=== PATIENT | male | born 2000 | race Two or more races ===

== ENCOUNTER 2018-04-26 21:10 | Emergency (ER) | payer MEDICAID ==
[~2018-04-26] VITALS: Ht 172.7 cm; Wt 70.3 kg
[2018-04-26] MEDS ORDERED: NKM (21:23)
--- NOTE | 2018-04-26 21:29 | Emergency Room Report ---
History of Present Illness General Chief Complaint: Lower Extremity Injury Source: Patient Present Illness HPI Is a 17-year-old male with no cerumen past medical history. He presents with injury to right great toe. Initially she was 2 weeks ago. He said he stopped it and swollen and was painful. There was bluish discoloration to the nail. He went back to work today and a block of cement drop on his shoe. Now the nose loose and there is blood. Pain is throbbing in nature. Worse with walking. Denies any fever chills denies any nausea vomiting. No other injury. Pain is 5 out of 10. Allergies: Coded Allergies: No Known Allergies (Unverified , 04/26/18) Patient History Past Medical History: see triage record, old chart reviewed Past Surgical History: none Pertinent Family History: none Social History: Denies: smoking Immunizations: other Reviewed Nursing Documentation: PMH: Agreed; PSxH: Agreed Nursing Documentation-PMH Past Medical History: No Stated History Review of Systems Eye: Denies: eye pain, blurred vision ENT: Denies: ear pain, nose congestion, throat swelling Respiratory: Denies: cough, shortness of breath Cardiovascular: Denies: chest pain, palpitations Gastrointestinal: Denies: abdominal pain, diarrhea, nausea, vomiting Musculoskeletal: Reports: joint pain; Denies: back pain Skin: Denies: rash Neurological: Denies: headache, numbness Endocrine: Denies: increased thirst, increased urine Hematologic/Lymphatic: Denies: easy bruising All Other Systems: negative except mentioned in HPI Physical Exam Vital Signs Date Time Temp Pulse Resp B/P (MAP) Pulse Ox O2 Delivery O2 Flow Rate FiO2 04/26/18 21:16 98.2 72 16 100/59 95 Room Air 98.2 vitals normal Sp02 EP Interpretation: reviewed, normal General Appearance: well appearing, no apparent distress, alert Head: normocephalic, atraumatic Eyes: bilateral eye PERRL, bilateral eye EOMI ENT: hearing grossly normal, normal pharynx Neck: full range of motion, supple, no meningismus Respiratory: chest non-tender, lungs clear, normal breath sounds Cardiovascular #1: regular rate, rhythm, no murmur Gastrointestinal: normal bowel sounds, non tender, no mass, no organomegaly, no bruit, non-distended Musculoskeletal: back normal, gait/station normal, normal range of motion, other - Right great toe: The nail was loose and his already discoloration to the nail itself. There is bleeding from all subungual hematoma. Psychiatric: mood/affect normal Skin: warm/dry Medical Decision Making Diagnostic Impression: Primary Impression: Nail avulsion of toe Qualified Codes: S91.209A - Unspecified open wound of unspecified toe(s) with damage to nail, initial encounter ER Course Patient presents with nail avulsion of his great toe. Most likely, he had no avulsion and subungual hematoma from 2 weeks ago. Today the blood was displaced. There is no evidence of any fracture or dislocation. We'll discharge home. Last Vital Signs Date Time Temp Pulse Resp B/P (MAP) Pulse Ox O2 Delivery O2 Flow Rate FiO2 04/26/18 21:16 98.2 72 16 100/59 95 Room Air 98.2 Status: improved Disposition: HOME, SELF-CARE Condition: Stable Scripts Ibuprofen* (MOTRIN*) 600 Mg Tablet 600 MG ORAL THREE TIMES A DAY, #30 TAB 0 Refills Prov: ISA KELLER M.D. 04/26/18 Additional Instructions: Follow-up your doctor in 7 days. Keep wound clean. Your toenail will fall off eventually. Return if symptom worsen. ISA KELLER M.D. Apr 26, 2018 21:29
[2018-04-26] MEDS ORDERED: IBUPROFEN600 MG ORAL (21:47)
[2018-04-26 21:50] VITALS: BP 108/59
--- NOTE | 2018-04-27 09:41 | Diagnostic Imaging Report ---
Indication: Right great toe pain, trauma Technique: 3 views of the right great toe Comparison: none Findings: No acute fractures. No dislocations. The joint spaces are preserved. No radiopaque foreign body Impression: Negative
== END 2018-04-26 22:29 | disposition home or self-care (01) ==
LOC: EMR 21:29
DX: S91.209A Unspecified open wound of unspecified toe(s) with damage to nail, initial encounter (principal); W20.8XXA Other cause of strike by thrown, projected or falling object, initial encounter; Y93.9 Activity, unspecified; Y92.9 Unspecified place or not applicable; Y99.0 Civilian activity done for income or pay
CPT/HCPCS: 99283